=== PATIENT | female | born 1995 | race African-American/Black ===

== ENCOUNTER 2018-04-30 12:11 | Emergency (ER) | payer OTHER ==
[~2018-04-30] VITALS: Ht 170.2 cm; Wt 131.1 kg
[2018-04-30 13:03] LABS: Urine WBC None Seen /hpf (0 - 5)
[2018-04-30 13:20] LABS: Urine Bacteria NONE SEEN /hpf (None Seen); Urine Blood Negative /uL (Negative); Urine Mucus FEW (None Seen); Urine Specific Gravity 1.026 (1.001-1.035)
[2018-04-30 14:11] LABS: Basophils # (auto) 0.1 uL; Basophils % (auto) 0.7 % (0.0-2.0); Eosinophils # (auto) 0.1 uL; Eosinophils % (auto) 0.8 % (0.0-7.0); Hematocrit 38.8 % (36.0-46.0); Lymphocytes % (auto) 24.2 % (10.0-50.0); Mean Corpuscular Hemoglobin 29.7 pg (28.0-32.0); Mean Corpuscular Hgb Conc. 33.5 g/dL (32.0-36.0); Mean Corpuscular Volume 88.7 fL (80.0-100.0); Monocytes # (auto) 0.5 uL; Monocytes % (auto) 5.7 % (0.0-12.0); Neutrophils # (auto) 5.6 uL; Neutrophils % (auto) 68.6 % (37.0-80.0); Platelet Count (auto) 187 10^3/uL (140-450); Red Blood Cells 4.37 10^6/uL (4.0-5.20); Red Cell Distribution Width 14.2 % (11.8-14.3); White Blood Cell 8.1 10^3/uL (4.4-10.8)
[2018-04-30 14:47] LABS: Calcium 8.7 mg/dL (8.5-10.1)
[2018-04-30 14:51] LABS: Albumin 3.4 g/dL (3.4-5.0); BUN/Creatinine Ratio 14.9
[2018-04-30 14:53] LABS: Bilirubin, Total 0.1 mg/dL (0.2-1.0); Total Protein 7.3 g/dL (6.4-8.2)
[2018-04-30] MEDS ORDERED: FOLIC ACID 1 MG TAB PO ONE (17:15)
[2018-04-30 17:25] VITALS: BP 128/78
== END 2018-04-30 17:26 | disposition home or self-care (01) ==
LOC: ER 12:11
DX: O26.891 Other specified pregnancy related conditions, first trimester (principal); R10.13 Epigastric pain; Z3A.01 Less than 8 weeks gestation of pregnancy
CPT/HCPCS: 36415; 76705; 80053; 81001; 84702; 85025

== ENCOUNTER 2018-07-30 11:36 | Emergency (ER) | payer MEDICAID ==
[~2018-07-30] VITALS: Ht 170.2 cm; Wt 127.9 kg
[2018-07-30 12:21] VITALS: BP 150/97
== END 2018-07-30 13:43 | disposition home or self-care (01) ==
LOC: ER 11:36
DX: O26.892 Other specified pregnancy related conditions, second trimester (principal); H60.91 Unspecified otitis externa, right ear; Z3A.26 26 weeks gestation of pregnancy

== ENCOUNTER 2021-03-19 14:19 | Emergency (ER) | payer MEDICAID ==
[~2021-03-19] VITALS: Ht 170.2 cm; Wt 131.5 kg
[2021-03-19 16:34] VITALS: BP 125/79
[2021-03-19] MEDS ORDERED: diphenhdrAMINE HCL 50 MG/1 ML VL IM ONE (17:30)
== END 2021-03-19 17:46 | disposition home or self-care (01) ==
LOC: ER 14:19
DX: B86 Scabies (principal)

== ENCOUNTER 2024-07-16 09:29 | Emergency (ER) | payer MEDICAID ==
[~2024-07-16] VITALS: Ht 170.2 cm; Wt 144.9 kg
[2024-07-16 09:51] VITALS: BP 149/79; PULSE 85; RESP 18; TEMP 97; O2SAT 97
[2024-07-16] MEDS ORDERED: CIPR1SUS8 OT (10:15)
[2024-07-16] MEDS ORDERED: AUG875T PO (10:15)
== END 2024-07-16 10:19 | disposition home or self-care (01) ==
LOC: ER 09:29
DX: H66.92 Otitis media, unspecified, left ear (principal)